=== PATIENT | female | born 1970 | race Caucasian/White ===

== ENCOUNTER 2020-03-16 21:13 | Emergency (ER) | payer SELFPAY ==
[2020-03-16] MEDS ORDERED: CLEOCIN300 MG PO (21:35)
[2020-03-16] MEDS ORDERED: LORTAB 1010 MG PO (21:35)
[2020-03-16] MEDS ORDERED: GABAPENTIN600 MG PO (21:41)
[2020-03-16] MEDS ORDERED: ATORVASTATIN CA20 MG PO (21:41)
[2020-03-16] MEDS ORDERED: LEVOTHYROXIN50 MC1 PO (21:42)
[2020-03-16] MEDS ORDERED: METFORMIN500 M2 PO (21:43)
[2020-03-16] MEDS ORDERED: XARELTO20 MG PO (21:43)
[2020-03-16] MEDS ORDERED: ZESTRIL5 M1 PO (21:43)
[2020-03-16] MEDS ORDERED: DEPAKOTE250 MG PO (21:44)
[2020-03-16 21:50] VITALS: BP 138/90
[2020-03-16] MEDS ORDERED: LISINOPRIL5 MG PO (21:52)
[2020-03-16] MEDS ORDERED: DEPAKOTE500 MG PO (21:52)
[2020-03-16] MEDS ORDERED: LEVOTHYROXIN50 MCG PO (21:53)
== END 2020-03-16 21:50 | disposition home or self-care (01) | DRG 159 ==
LOC: ED 21:13
DX: K04.7 Periapical abscess without sinus (principal); S02.5XXA Fracture of tooth (traumatic), initial encounter for closed fracture; X58.XXXA Exposure to other specified factors, initial encounter